=== PATIENT | female | born 1980 | race Caucasian/White ===

== ENCOUNTER 2018-03-22 12:45 | Inpatient (IN) | payer OTHER ==
[~2018-03-22] VITALS: Ht 160 cm; Wt 88.5 kg
[~2018-03-22 12:45] MED LIST: CIPRO500 MG PO; OMEPRAZOLE20 M1 PO
[2018-04-07] MEDS ORDERED: PRENATAL TABLE1 EACH PO (09:17)
[2018-04-07] MEDS ORDERED: FERRO-TIME325 MG PO (09:17)
== END 2018-04-09 14:03 | disposition home or self-care (01) | DRG 775 ==
LOC: LDR 04-07 07:41 → OB/GYN 04-07 14:23 → LDR 04-10 12:45
PROC: 10E0XZZ Delivery of Products of Conception, External Approach (ICD-10-PCS; principal; 2018-04-07)
PROC: 10907ZC Drainage of Amniotic Fluid, Therapeutic from Products of Conception, Via Natural or Artificial Opening (ICD-10-PCS; 2018-04-07)
PROC: 0W8NXZZ Division of Female Perineum, External Approach (ICD-10-PCS; 2018-04-07)
PROC: 3E033VJ Introduction of Other Hormone into Peripheral Vein, Percutaneous Approach (ICD-10-PCS; 2018-04-07)
PROC: 4A1HXCZ Monitoring of Products of Conception, Cardiac Rate, External Approach (ICD-10-PCS; 2018-04-07)
DX: O80 Encounter for full-term uncomplicated delivery (principal); Z3A.39 39 weeks gestation of pregnancy; Z37.0 Single live birth

== ENCOUNTER 2023-01-06 14:40 | Inpatient (IN) | payer OTHER ==
[~2023-01-06] VITALS: Ht 160 cm; Wt 70.3 kg
[~2023-01-06 14:40] MED LIST changes: +FERRO-TIME325 MG PO; +PRENATAL TABLE1 EACH PO
--- NOTE | 2023-01-06 15:16 | NUR ---
PTE ALERTA Y ORIENTADA X3, REFIERE TENER DOLOR EN EL COSTADO DERECHO QUE SE IRRADIA HACIA LA ESPALDA. SE MONITORENA VS Y SE UBICA EN PASILLO
--- NOTE | 2023-01-06 16:58 | NUR ---
PACIENTE EVALUADA POR EL QUIEN ORDENA TRATAMIENTO MEDICO. SE REALIZA MUESTRAN BAJO MEDIDAS ASEPTICAS. SE ADMINISTRAN MEDICAMENTOS ANNIA ORDEN. SE ESPERA POR SONOGRAMA.
[2023-01-09] MEDS ORDERED: DEXILANT60 MG PO (15:36)
[2023-01-09] MEDS ORDERED: METRONIDAZOLE500 MG PO (15:36)
[2023-01-09] MEDS ORDERED: CEFDINIR300 MG PO (15:36)
== END 2023-01-09 16:42 | disposition home or self-care (01) | DRG 440 ==
LOC: ER 14:40 → MEDJ 19:09
PROVIDERS: ADMIT Internal Medicine; ATTEND Internal Medicine
PROC: BF37ZZZ Magnetic Resonance Imaging (MRI) of Pancreas (ICD-10-PCS; 2023-01-06)
PROC: 0DB78ZX Excision of Stomach, Pylorus, Via Natural or Artificial Opening Endoscopic, Diagnostic (ICD-10-PCS; principal; 2023-01-09)
PROC: CF2YYZZ Tomographic (Tomo) Nuclear Medicine Imaging of Hepatobiliary System and Pancreas using Other Radionuclide (ICD-10-PCS; 2023-01-09)
DX: K85.20 Alcohol induced acute pancreatitis without necrosis or infection (principal); K82.8 Other specified diseases of gallbladder; K29.60 Other gastritis without bleeding; Z20.822 Contact with and (suspected) exposure to COVID-19; F10.20 Alcohol dependence, uncomplicated; K75.89 Other specified inflammatory liver diseases